=== PATIENT | female | born 1940 | race Caucasian/White ===

== ENCOUNTER 2023-12-14 10:54 | Day surgery (SDC) | payer OTHER, SELFPAY ==
[2023-12-12 07:51] VITALS: BMI 35.7
[2023-12-12 08:23] LABS: % Basophils 0.9 % (0-2); % Eosinophils 4.3 % (0-6); % Immature Granulocytes 0.4 % (0-0.5); % Lymphocytes 25.3 % (20.5-51.1); % Monocytes 7.1 % (1.7-9.3); Absolute Basophils 0.1 10^3/uL (0-0.2); Absolute Eosinophils 0.5 10^3/uL (0-0.7); Absolute Immature Granulocytes 0.1 10^3/uL (0-0.05); Absolute Lymphocytes 2.9 10^3/uL (1.2-3.4); Absolute Monocytes 0.8 10^3/uL (0.1-0.6); Hematocrit 39.4 % (37.0-47.0); Hemoglobin 13.3 g/dL (12.0-16.0); Mean Corp Hgb Conc. 33.8 g/dL (33.0-37.0); Mean Corpuscular Hgb 30.2 pg (27.0-31.0); Mean Corpuscular Volume 89.3 fL (81.0-99.0); Mean Platelet Volume 8.6 fL (7.4-10.4); Nucleated Red Blood Cells % 0 %; Platelet Count 383 10^3/uL (130-400); Red Blood Cell Count 4.41 10^6/uL (4.20-5.40); Red Cell Dist. Width 13.4 % (11.5-14.5); White Blood Cell Count 11.3 10^3/uL (4.8-10.8)
[2023-12-12 09:04] LABS: ALT (SGPT) 22 U/L (0-35); AST (SGOT) 27 U/L (14-36); Albumin 3.8 g/dl (3.5-5.0); Alkaline Phosphatase 71 U/L (38-126); Blood Urea Nitrogen 15 mg/dl (7-17); Calcium 9.4 mg/dl (8.4-10.2); Carbon Dioxide 23 mmol/L (22-30); Chloride 100 mmol/L (98-107); Estimated Creatinine Clearance 53 ml/min; Glucose 98 mg/dl (70-99); Potassium 4.7 mmol/L (3.5-5.1); Sodium 135 mmol/L (135-145); Total Bilirubin 0.6 mg/dl (0.2-1.3); Total Protein 6.2 g/dl (6.3-8.2); eGFR > 60.00
[2023-12-12 10:39] LABS: D-Dimer 0.38 ug/mlFEU (0.00-0.50)
[2023-12-14] VITALS (7 sets, daily range): BP systolic 101–155; BP diastolic 48–79; BMI 35.1
[2023-12-14] MEDS: NSS 274 ML IV (12:21)
[2023-12-14 13:24] LABS: ACT-LR - POC 248 Seconds (116-155)
--- NOTE | 2023-12-14 13:58 | ITS.CL.CATH ---
[employer] - Catheterization
Cardiac Catheterization
Procedure Report:
CARDIAC CATHETERIZATION REPORT
Date of Procedure: 12/14/2023
Referring: Ammon Weiss MD
Indication: Exertional shortness of breath and chest discomfort
HEMODYNAMIC DATA
AO: 136/58
LV: Not done
PCWP: 15
PA: 38/18
RV: 38/14
RA: 12
Oximetry: Ao 90%, PA 67%, cardiac output 3.8, cardiac index 2.0
LEFT VENTRICULOGRAPHY: Not done
CORONARY ANGIOGRAPHY
Dominance: Right
Left Main: Normal
LAD: Focal 40% proximal LAD stenosis spanning the takeoff of the first septal ged teacher. There is a 50% stenosis in the mid LAD just distal to the takeoff of the moderate-sized second diagonal branch. The remainder of the LAD system has trivial
luminal disease.
Circumflex: Trivial luminal irregularities
RCA: 30% proximal RCA stenosis with otherwise mild luminal irregularities
FloWire assessment: At the conclusion the diagnostic study, the patient underwent evaluation of the LAD disease with FloWire assessment. Heparin was used for anticoagulation. An EBU 3.55 Hebrew guide catheter was used. A Familonet flow wire was
passed into the distal LAD. Initial iFR measurements were 0.89, 0.88, and 0.89. These are consistent with borderline to mildly abnormal flow. Subsequent iFR measurements after the wire was withdrawn to the guide catheter, we normalized, and then
again passed into the distal LAD were 0.91, 0.91, and 0.92. These are consistent with nonflow-limiting disease. At this point, I decided to do FFR given the equivocal IFR findings. Resting FFR was 0.92. With adenosine infusion at 140 mcg/kg/min,
FFR fell to 0.89. This is consistent with nonflow-limiting disease (flow-limiting disease is FFR less than 0.81).
Closure Device: None-the procedure was performed via the right radial artery and right femoral vein. The Arjun's test was normal prior to the procedure.
Radiation dose (mGy): 225
DAP (cm2.Gy): 20.8
Fluoroscopy time: 8.7 minutes
CONCLUSIONS:
1. Top normal filling pressures with borderline pulmonary hypertension
2. Single-vessel CAD as described. FloWire evaluation with iFR revealed equivocal results prompting us to do FFR which showed the LAD disease is nonflow limiting
RECOMMENDATIONS: Continue medical therapy
Copy to: Ammon Weiss MD, Otf Vargas, DO
Eleuterio Patrick MD, FACC, [facility]
[2023-12-14 15:39] LABS: ACT-LR - POC > 397 Seconds (116-155)
== END 2023-12-14 17:05 | disposition home or self-care (01) ==
LOC: CATH 10:54
PROVIDERS: ATTENDING PHYSICIAN Internal Medicine Cardiovascular Disease; FAMILY PHYSICIAN Family Medicine; OTHER PHYSICIAN Internal Medicine Cardiovascular Disease; OTHER PHYSICIAN Physician Assistant Medical
DX: I25.10 Atherosclerotic heart disease of native coronary artery without angina pectoris (principal); I27.20 Pulmonary hypertension, unspecified; R07.89 Other chest pain; R06.09 Other forms of dyspnea; I10 Essential (primary) hypertension; E78.5 Hyperlipidemia, unspecified; R73.03 Prediabetes; E66.9 Obesity, unspecified; I87.2 Venous insufficiency (chronic) (peripheral); R60.9 Edema, unspecified; E04.2 Nontoxic multinodular goiter; M35.3 Polymyalgia rheumatica; M19.90 Unspecified osteoarthritis, unspecified site; M85.80 Other specified disorders of bone density and structure, unspecified site; R91.1 Solitary pulmonary nodule; R06.02 Shortness of breath; Z88.5 Allergy status to narcotic agent; Z88.2 Allergy status to sulfonamides
CPT/HCPCS: 36415; 80053; 85025; 85347; 85379; 93005; 93456; 93571; C1769; C1894; J0153; Q9967

== ENCOUNTER → 2024-01-28 09:46 | Outpatient (REF) | payer OTHER, SELFPAY | LOC: HWRAD 09:46 | PROVIDERS: ATTENDING PHYSICIAN Family Medicine | DX: E04.2 Nontoxic multinodular goiter (principal); R06.02 Shortness of breath | CPT/HCPCS: 71046; 76536 ==

== ENCOUNTER → 2025-02-19 11:50 | Outpatient (REF) | payer OTHER, SELFPAY | LOC: HWRAD 11:50 | PROVIDERS: ATTENDING PHYSICIAN Family Medicine | DX: M79.602 Pain in left arm (principal) | CPT/HCPCS: 72040; 73030 ==

== ENCOUNTER → 2025-09-22 09:09 | Outpatient (REF) | payer OTHER, SELFPAY | LOC: HWRAD 09:09 | PROVIDERS: ATTENDING PHYSICIAN Internal Medicine Rheumatology; FAMILY PHYSICIAN Family Medicine | DX: M81.0 Age-related osteoporosis without current pathological fracture (principal); M85.89 Other specified disorders of bone density and structure, multiple sites; Z13.820 Encounter for screening for osteoporosis | CPT/HCPCS: 77080; 77081 ==